=== PATIENT | female | born 1940 | race Two or more races ===

== ENCOUNTER 2017-11-02 13:29 | Emergency (ER) | payer OTHER ==
[~2017-11-02] VITALS: Ht 147.3 cm; Wt 60.0 kg
[2017-11-02] MEDS ORDERED: ONDANSETRON HCL 4MG/2ML VIAL IV STA (14:14)
[2017-11-02 14:46] LABS: BASOPHILS % 0.7 % (0.0-2.0); EOSINOPHILS % 0.2 % (0.0-5.0); HEMATOCRIT. 41.2 % (36.0-48.0); HEMOGLOBIN. 13.8 g/dL (12.0-16.0); LYMPHOCYTES % 22.9 % (20.0-50.0); MEAN CORPUSCULAR HEMOGLOBIN 31.2 pg (28.0-32.0); MEAN CORPUSCULAR VOLUME 93.5 fL (81.0-99.0); MEAN PLATELET VOLUME 8.3 fl (7.4-10.4); MONOCYTES % 4.9 % (2.0-8.0); NEUTROPHILS % 71.3 % (40.0-76.0); PLATELET 272 x1000/uL (130-400); RED BLOOD CELL COUNT 4.41 mill/uL (4.2-5.4); RED CELL DISTRIBUTION WIDTH 13.3 % (11.6-14.6)
[2017-11-02 14:53] LABS: CHLORIDE 105 mEq/L (98-107)
[2017-11-02 14:55] LABS: PARTIAL THROMBOPLASTIN TIME 23.4 sec (23.4-31.0); PROTHROMBIN TIME 10.7 sec (9.4-11.6)
[2017-11-02] MEDS ORDERED: MECLIZINE 12.5MG TABLET PO ONE (17:00)
[2017-11-02 17:35] VITALS: BP 149/83
== END 2017-11-02 17:44 | disposition home or self-care (01) ==
LOC: ER 13:43 → CANRESERV 15:21 → ENRESERV 15:21 → ER 17:44 → CANBEDREQ 20:51
DX: I10 Essential (primary) hypertension (principal); R91.8 Other nonspecific abnormal finding of lung field; R11.0 Nausea; R53.1 Weakness; H40.9 Unspecified glaucoma; R79.1 Abnormal coagulation profile; Z88.8 Allergy status to other drugs, medicaments and biological substances
CPT/HCPCS: 36415; 71045; 80053; 83690; 83880; 84443; 84484; 85025; 85610; 85730; 93005; 96374; 99285; J2405; J8597